=== PATIENT | female | born 1985 | race Hispanic/Latino ===

== ENCOUNTER 2018-03-19 09:30 | Inpatient (IN) | payer MEDICAID ==
[~2018-03-19] VITALS: Ht 160 cm; Wt 97.5 kg
[2018-03-19 10:35] LABS: HEMATOCRIT 32.9 % (36-48); MEAN CORPUSCULAR HEMOGLOBIN 28.1 pg (27.0-33.0); MEAN CORPUSCULAR HGB CONC 33.7 g/dL (32.0-36.0); MEAN CORPUSCULAR VOLUME 83.4 fL (79-99); NUCLEATED RED BLOOD CELLS 0.1 % (0.0-0.19); PLATELET COUNT (AUTO) 211 K/uL (130-400); RED BLOOD CELL COUNT(AUTO) 3.95 MIL/uL (4.00-5.50); RED CELL DISTRIBUTION WIDTH 14.5 % (11.0-15.5); WHITE BLOOD COUNT (AUTO) 8.2 K/uL (4.8-10.8)
[2018-03-20 07:27] LABS: HEPATITIS Bs ANTIGEN SCREEN P Negative (Negative)
[2018-03-20] MEDS ORDERED: LACTATED RINGERS 1000ML 1,000 ML IV SCH (07:45)
[2018-03-20] MEDS ORDERED: CEFAZOLIN SODIUM 1 GM VIAL IVP PRN (07:45)
[2018-03-20] MEDS ORDERED: DURAMORPH PF1 MG/ML 10ML AMP IV ONE (08:54)
[2018-03-20] MEDS ORDERED: CEFAZOLIN SODIUM 1 GM VIAL IVP ONE (09:05)
[2018-03-20] MEDS ORDERED: GLYCOPYRROLATE 1 MG/5 ML SYRINGE ONE (09:11)
[2018-03-20] MEDS ORDERED: OXYTOCIN 10 UNIT/1ML 10ML VIAL ONE (09:31)
[2018-03-20] MEDS ORDERED: MIDAZOLAM HCL 1 MG/ML 2ML VIAL ONE (09:31)
[2018-03-20] MEDS ORDERED: OXYTOCIN-LR 20 UNITS/1000 ML 1,000 ML IV PRN (10:50)
[2018-03-20] MEDS ORDERED: SODIUM CHLORIDE 0.9% 10 ML VIAL IVP PRN (11:00)
[2018-03-20] MEDS ORDERED: MEPERIDINE-PF 75 MG/ML SYG IM PRN (11:00)
[2018-03-20] MEDS ORDERED: PROMETHAZINE HCL 25 MG/ML 1ML AMPULE IM PRN ×2 (11:00→13:15)
[2018-03-20] MEDS ORDERED: LACTATED RINGERS 1000ML 1,000 ML IV ONE (11:46)
[2018-03-20] MEDS ORDERED: OXYTOCIN 10 USP UNITS/ML ONE (11:46)
[2018-03-20 12:02] VITALS: BP 94/63
[2018-03-20] MEDS ORDERED: DiphenhydrAMINE HCL 50 MG/ML VIAL IVP PRN (13:15)
[2018-03-20] MEDS ORDERED: ONDANSETRON HCL 4 MG/2 ML VIAL IVP PRN ×2 (13:15)
[2018-03-20] MEDS ORDERED: ONDANSETRON HCL 4 MG/2 ML 8 MG in SODIUM CHLORIDE 0.9% 50 ML IVP NR (13:15)
[2018-03-20] MEDS ORDERED: MORPHINE SULFATE 2 MG/ML 1ML SYG IVP PRN (13:15)
[2018-03-20] MEDS ORDERED: NALOXONE HCL 0.4 MG/1 ML ML IVP PRN ×2 (13:15)
[2018-03-20] MEDS ORDERED: HYDROCODONE/ACETAMINOPHEN 5/325 MG TAB PO PRN (13:15)
[2018-03-20] MEDS ORDERED: METOCLOPRAMIDE 10 MG/2 ML VIAL IVP PRN (13:15)
[2018-03-20] MEDS ORDERED: EPHEDRINE SULFATE 50 MG/ML AMPULE IVP PRN (13:15)
[2018-03-20 16:15] VITALS: BP 103/55
[2018-03-20] MEDS: DEXTROSE 5 %-0.45 % NACL 1,000 ML IV PRN (17:53)
[2018-03-20] MEDS: HYDROCODONE/ACETAMINOPHEN 5/325 MG TAB PO PRN ×2 (17:56→23:51)
[2018-03-20 20:41] VITALS: BP 107/71
[2018-03-21] MEDS: DEXTROSE 5 %-0.45 % NACL 1,000 ML IV PRN ×2 (00:13→07:04)
[2018-03-21 00:27] VITALS: BP 110/68
[2018-03-21 04:58] VITALS: BP 97/52
[2018-03-21] MEDS: HYDROCODONE/ACETAMINOPHEN 5/325 MG TAB PO PRN ×2 (05:31→21:31)
[2018-03-21 06:18] LABS: HEMATOCRIT 30.2 % (36-48); MEAN CORPUSCULAR HEMOGLOBIN 27.6 pg (27.0-33.0); MEAN CORPUSCULAR HGB CONC 33.1 g/dL (32.0-36.0); MEAN CORPUSCULAR VOLUME 83.6 fL (79-99); PLATELET COUNT (AUTO) 159 K/uL (130-400); RED BLOOD CELL COUNT(AUTO) 3.61 MIL/uL (4.00-5.50); RED CELL DISTRIBUTION WIDTH 14.9 % (11.0-15.5); WHITE BLOOD COUNT (AUTO) 11.5 K/uL (4.8-10.8)
[2018-03-21 07:40] VITALS: BP 107/63
[2018-03-21] MEDS ORDERED: ACETAMINOPHEN-CODEINE 300/30MG TAB PO PRN (08:00)
[2018-03-21] MEDS ORDERED: BISACODYL 10 MG SUPP.RECT RC PRN (08:00)
[2018-03-21] MEDS ORDERED: DIPHENHYDRAMINE HCL 25 MG CAPSULE PO PRN (08:30)
[2018-03-21] MEDS: DOCUSATE SODIUM 100 MG CAP PO SCH ×2 (08:32→21:21)
[2018-03-21] MEDS: IBUPROFEN 800 MG TAB PO SCH ×2 (08:32→17:30)
[2018-03-21] MEDS: SIMETHICONE 80 MG TAB.CHEW PO PRN ×3 (09:56→18:55)
[2018-03-21] MEDS ORDERED: IBUPROFEN 800 MG TAB PO SCH (11:00)
[2018-03-21 11:38] VITALS: BP 106/61
[2018-03-21] MEDS ORDERED: DIPH,PERTUSS(ACELL),TET VAC/PF 0.5 ML VIAL IM SCH (13:45)
[2018-03-21] MEDS ORDERED: MEASLES/MUMPS/RUBELLA VACCINE, LIVE 0.5 ML/VIAL SQ SCH (13:45)
[2018-03-21 15:56] VITALS: BP 90/52
[2018-03-21 20:50] VITALS: BP 94/53
[2018-03-22] MEDS: IBUPROFEN 800 MG TAB PO SCH ×2 (00:12→08:34)
[2018-03-22 01:35] VITALS: BP 95/52
[2018-03-22 05:09] VITALS: BP 94/57
[2018-03-22 07:47] VITALS: BP 101/61
[2018-03-22] MEDS: SIMETHICONE 80 MG TAB.CHEW PO PRN (08:33)
[2018-03-22] MEDS: DOCUSATE SODIUM 100 MG CAP PO SCH (08:33)
== END 2018-03-22 11:05 | disposition home or self-care (01) | DRG 540 ==
LOC: EDSTATUS 09:30 → WSH 03-20 07:30
PROVIDERS: ADMIT Specialist; ATTEND Specialist
PROC: 3E0234Z Introduction of Serum, Toxoid and Vaccine into Muscle, Percutaneous Approach (ICD-10-PCS; 2018-03-20)
PROC: 3E0234Z Introduction of Serum, Toxoid and Vaccine into Muscle, Percutaneous Approach (ICD-10-PCS; 2018-03-20)
PROC: 3E0134Z Introduction of Serum, Toxoid and Vaccine into Subcutaneous Tissue, Percutaneous Approach (ICD-10-PCS; 2018-03-20)
PROC: 10D00Z1 Extraction of Products of Conception, Low, Open Approach (ICD-10-PCS; principal; 2018-03-20 09:00)
DX: O34.211 Maternal care for low transverse scar from previous cesarean delivery (principal); O75.3 Other infection during labor; N85.8 Other specified noninflammatory disorders of uterus; Z3A.39 39 weeks gestation of pregnancy; Z37.0 Single live birth; Z23 Encounter for immunization; Z91.040 Latex allergy status
CPT/HCPCS: 36415; 59510; 85027; 86592; 86850; 86900; 86901; 87340; 90707; 90715; A4344; A4606; J0690; J2250; J2274; J2590; J3490; J7120; Q2038

== ENCOUNTER 2020-12-11 12:02 | Emergency (ER) | payer MEDICAID, OTHER ==
[~2020-12-11] VITALS: Ht 160 cm; Wt 70.3 kg
[2020-12-11 12:36] LABS: BASOPHILS % (AUTO) 0.8 % (0.0-5.0); EOSINOPHILS % (AUTO) 0.2 % (0.0-8.0); HEMATOCRIT 36.6 % (36-48); LYMPHOCYTES % (AUTO) 14.8 % (21.0-51.0); MEAN CORPUSCULAR HEMOGLOBIN 30.5 pg (27.0-33.0); MEAN CORPUSCULAR HGB CONC 33.6 g/dL (32.0-36.0); MEAN CORPUSCULAR VOLUME 90.8 fL (79-99); MONOCYTES % (AUTO) 8.9 % (3.0-13.0); NEUTROPHILS % (AUTO) 74.7 % (40.0-77.0); PLATELET COUNT (AUTO) 180 K/uL (130-400); RED BLOOD CELL COUNT(AUTO) 4.03 MIL/uL (4.00-5.50); WHITE BLOOD COUNT (AUTO) 4.9 K/uL (4.8-10.8)
[2020-12-11 12:50] LABS: CREATININE 0.7 mg/dL (0.5-1.5); POTASSIUM 3.9 mmol/L (3.5-5.1)
[2020-12-11 13:01] LABS: ALBUMIN 3.8 g/dL (3.5-5.0); BILIRUBIN,TOTAL 0.6 mg/dL (0.2-1.0); TOTAL PROTEIN, SERUM 7.6 g/dL (6.0-8.3)
[2020-12-11 14:00] LABS: APPEARANCE,URINE Clear (CLEAR); BILIRUBIN,URINE Negative (NEGATIVE); COLOR,URINE Yellow (YELLOW); GLUCOSE, URINE (UA) Negative (NEGATIVE); KETONES,URINE Negative (NEGATIVE); LEUKOCYTE ESTERASE ,URINE Negative (NEGATIVE); NITRATE,URINE Negative (NEGATIVE); OCCULT BLOOD,URINE Negative (NEGATIVE); PROTEIN,URINE Negative (NEGATIVE)
[2020-12-11] MEDS ORDERED: ACETAMINOPHEN 325 MG TAB PO SCH (14:00)
[2020-12-11] MEDS ORDERED: ACETAMINOPHEN 500 MG TABLET ONE (14:00)
[2020-12-11 14:25] VITALS: BP 107/66
[2020-12-11] MEDS ORDERED: ONDA4TAB4 PO (14:56)
[2020-12-11] MEDS ORDERED: ACET-2247 PO (14:56)
== END 2020-12-11 15:22 | disposition home or self-care (01) ==
LOC: EDH 12:02
DX: O26.891 Other specified pregnancy related conditions, first trimester (principal); R07.89 Other chest pain; R06.00 Dyspnea, unspecified; Z3A.01 Less than 8 weeks gestation of pregnancy; Z91.040 Latex allergy status; Z98.890 Other specified postprocedural states
CPT/HCPCS: 36415; 76801; 80053; 81003; 84484; 84702; 85025; 86140; 93005

== ENCOUNTER 2021-05-28 12:08 | Observation (INO) | payer MEDICAID ==
[~2021-05-28 12:08] MED LIST: PREN1TAB63 PO
[2021-05-28 12:43] VITALS: BP 90/54
== END 2021-05-28 13:40 | disposition home or self-care (01) ==
LOC: LDH 12:08
PROVIDERS: ADMIT Specialist; ATTEND Specialist
DX: O60.03 Preterm labor without delivery, third trimester (principal); O36.8330 Maternal care for abnormalities of the fetal heart rate or rhythm, third trimester, not applicable or unspecified; Z3A.30 30 weeks gestation of pregnancy; Z98.891 History of uterine scar from previous surgery
CPT/HCPCS: 59025; 76819; G0378

== ENCOUNTER 2021-05-31 11:19 | Observation (INO) | payer MEDICAID ==
[~2021-05-31] VITALS: Ht 160 cm; Wt 90.7 kg
[2021-05-31] MEDS: LACTATED RINGERS 1000ML 1,000 ML IV SCH ×2 (11:50→15:40)
== END 2021-06-01 08:20 | disposition home or self-care (01) ==
LOC: LDH 11:19
PROVIDERS: ADMIT Specialist; ATTEND Specialist
DX: O41.03X0 Oligohydramnios, third trimester, not applicable or unspecified (principal); O62.9 Abnormality of forces of labor, unspecified; O26.893 Other specified pregnancy related conditions, third trimester; R60.0 Localized edema; Z3A.32 32 weeks gestation of pregnancy; Z88.0 Allergy status to penicillin
CPT/HCPCS: 76815; 96360; 96361 ×3; G0378 ×20; G0379

== ENCOUNTER 2021-06-15 16:35 | Observation (INO) | payer MEDICAID | END 2021-06-15 17:41 | disposition home or self-care (01) | LOC: LDH 16:35 | PROVIDERS: ADMIT Specialist; ATTEND Specialist | DX: O42.913 Preterm premature rupture of membranes, unspecified as to length of time between rupture and onset of labor, third trimester (principal); Z3A.33 33 weeks gestation of pregnancy | CPT/HCPCS: 59025; G0378 ×2; G0379 ==

== ENCOUNTER 2021-07-06 13:58 | Inpatient (IN) | payer MEDICAID ==
[2021-07-05] MEDS: LACTATED RINGERS 1000ML 1,000 ML IV SCH (22:00)
[~2021-07-06] VITALS: Ht 161.3 cm; Wt 92.1 kg
[2021-07-06 20:00] VITALS: BP 95/52
[2021-07-07] MEDS ORDERED: DIPH-764 PO (05:32)
[2021-07-07] MEDS ORDERED: METOCLOPRAMIDE 10 MG/2 ML VIAL IVP PRN (12:30)
[2021-07-07] MEDS ORDERED: CEFAZOLIN SODIUM 1 GM VIAL IVP PRN (12:30)
[2021-07-07] MEDS ORDERED: FAMOTIDINE 20MG VIAL IV PRN (12:30)
[2021-07-07] MEDS ORDERED: CITRIC ACID/SODIUM CITRATE 30 ML UDCUP PO PRN (12:30)
[2021-07-07 13:42] LABS: HEMATOCRIT 28.8 % (36-48); MEAN CORPUSCULAR HEMOGLOBIN 26.2 pg (27.0-33.0); MEAN CORPUSCULAR HGB CONC 31.9 g/dL (32.0-36.0); MEAN CORPUSCULAR VOLUME 82.1 fL (79-99); RED BLOOD CELL COUNT(AUTO) 3.51 MIL/uL (4.00-5.50); RED CELL DISTRIBUTION WIDTH 14.8 % (11.0-15.5); WHITE BLOOD COUNT (AUTO) 7.3 K/uL (4.8-10.8)
[2021-07-07] MEDS ORDERED: ONDANSETRON 4MG INJ ONE ×2 (13:54→14:39)
[2021-07-07] MEDS ORDERED: EPHEDRINE SULFATE 50 MG/ML AMPULE ONE (13:55)
[2021-07-07] MEDS ORDERED: FENTANYL CITRATE PF 50 MCG/1 ML 2ML VIAL ONE (13:55)
[2021-07-07] MEDS ORDERED: MORPHINE PF 100MG/10ML AMP IV ONE (13:55)
[2021-07-07] MEDS ORDERED: OXYTOCIN 10 USP UNITS/ML ONE (13:55)
[2021-07-07] MEDS ORDERED: METHYLERGONOVINE MALEATE 0.2 MG/1 ML ML ONE (14:03)
[2021-07-07] MEDS ORDERED: MISOPROSTOL 200 MCG TABLET ONE (14:03)
[2021-07-07] MEDS ORDERED: CEFAZOLIN SODIUM 2 GM VIAL IV ONE (14:36)
[2021-07-07] MEDS ORDERED: METHYLERGONOVINE MALEATE 0.2 MG/1 ML ML IM ONE (15:04)
[2021-07-07] MEDS ORDERED: OXYTOCIN-LR 20 UNITS/1000 ML 1,000 ML IV ONE (15:37)
[2021-07-07 15:49] LABS: HEMATOCRIT 28.6 % (36-48)
[2021-07-07] MEDS ORDERED: MIDAZOLAM HCL 1 MG/ML 2ML VIAL ONE (15:59)
[2021-07-07] MEDS ORDERED: OXYTOCIN-LR 20 UNITS/1000 ML 1,000 ML IV PRN (17:00)
[2021-07-07] MEDS ORDERED: 0.9%NACL 10ML VIAL IVP PRN (17:00)
[2021-07-07] MEDS ORDERED: MEPERIDINE-PF 75 MG/ML SYG IM PRN (17:00)
[2021-07-07] MEDS ORDERED: PROMETHAZINE HCL 25 MG/ML 1ML AMPULE IM PRN (17:00)
[2021-07-07] MEDS ORDERED: DEXTROSE 5 %-0.45 % NACL 1,000 ML IV PRN (17:00)
[2021-07-07] MEDS ORDERED: ONDANSETRON 4MG INJ IVP PRN (17:30)
[2021-07-07] MEDS ORDERED: EPHEDRINE SULFATE 50 MG/ML AMPULE IVP PRN (17:30)
[2021-07-07] MEDS ORDERED: DiphenhydrAMINE HCL 50 MG/ML VIAL IVP PRN (17:30)
[2021-07-07] MEDS ORDERED: NALOXONE HCL 0.4 MG/1 ML ML IVP PRN ×3 (17:30)
[2021-07-07 20:25] VITALS: BP 109/66
[2021-07-07] MEDS: LACTATED RINGERS 1000ML 1,000 ML IV SCH (22:30)
[2021-07-07 22:55] VITALS: BP 101/66
[2021-07-08 03:50] VITALS: BP 106/57
[2021-07-08] MEDS: LACTATED RINGERS 1000ML 1,000 ML IV SCH (06:30)
[2021-07-08 07:14] LABS: HEPATITIS Bs ANTIGEN SCREEN P Negative (Negative)
[2021-07-08 07:16] LABS: MEAN CORPUSCULAR HEMOGLOBIN 25.9 pg (27.0-33.0); MEAN CORPUSCULAR HGB CONC 32.3 g/dL (32.0-36.0); MEAN CORPUSCULAR VOLUME 80.2 fL (79-99); RED BLOOD CELL COUNT(AUTO) 3.24 MIL/uL (4.00-5.50); RED CELL DISTRIBUTION WIDTH 14.5 % (11.0-15.5); WHITE BLOOD COUNT (AUTO) 10.1 K/uL (4.8-10.8)
[2021-07-08 07:45] VITALS: BP 89/52
[2021-07-08] MEDS ORDERED: DIPH,PERTUSS(ACELL),TET VAC/PF 0.5 ML VIAL IM SCH (08:30)
[2021-07-08] MEDS ORDERED: ACETAMINOPHEN 500 MG TABLET PO PRN (08:30)
[2021-07-08] MEDS ORDERED: HYDROCODONE/ACETAMINOPHEN 5/325 MG TAB PO PRN (08:30)
[2021-07-08] MEDS ORDERED: BISACODYL 10 MG SUPP.RECT RC PRN (08:30)
[2021-07-08] MEDS: ACETAMINOPHEN WITH CODEINE 1 TAB TAB PO PRN ×3 (09:18→17:39)
[2021-07-08] MEDS: SIMETHICONE 80 MG TAB.CHEW PO PRN ×2 (09:18→21:04)
[2021-07-08] MEDS: DOCUSATE SODIUM 100 MG CAP PO SCH ×2 (09:18→21:04)
[2021-07-08 11:31] VITALS: BP 97/57
[2021-07-08] MEDS: IBUPROFEN 600 MG TABLET PO PRN ×2 (14:26→21:08)
[2021-07-08 16:00] VITALS: BP 102/61
[2021-07-08 19:19] VITALS: BP 110/67
[2021-07-08 23:00] VITALS: BP 103/56
[2021-07-09 03:22] VITALS: BP 95/57
[2021-07-09] MEDS: ACETAMINOPHEN WITH CODEINE 1 TAB TAB PO PRN ×3 (03:49→14:10)
[2021-07-09] MEDS: IBUPROFEN 600 MG TABLET PO PRN (06:38)
[2021-07-09 07:12] VITALS: BP 91/61
[2021-07-09] MEDS: DOCUSATE SODIUM 100 MG CAP PO SCH (09:03)
[2021-07-09] MEDS: SIMETHICONE 80 MG TAB.CHEW PO PRN ×2 (09:03→12:05)
[2021-07-09] MEDS ORDERED: FLU VACC QS2021-22(6MOS UP)/PF 60 MCG/0.5 ML ML IM SCH (10:00)
[2021-07-09] MEDS ORDERED: FLU VACC QS2021-22(6MOS UP)/PF 60 MCG/0.5 ML ML IM ONE (10:00)
[2021-07-09 11:03] VITALS: BP 102/63
== END 2021-07-09 15:30 | disposition home or self-care (01) | DRG 540 ==
LOC: INTOOBSV 13:58 → LDH 13:58 → OBSVTOIN 13:58 → WSH 07-07 20:28
PROVIDERS: ADMIT Specialist; ATTEND Specialist
PROC: 3E0234Z Introduction of Serum, Toxoid and Vaccine into Muscle, Percutaneous Approach (ICD-10-PCS; 2021-07-07)
PROC: 3E02340 Introduction of Influenza Vaccine into Muscle, Percutaneous Approach (ICD-10-PCS; 2021-07-07)
PROC: 10D00Z0 Extraction of Products of Conception, High, Open Approach (ICD-10-PCS; principal; 2021-07-07 14:30)
DX: O34.212 Maternal care for vertical scar from previous cesarean delivery (principal); O41.03X0 Oligohydramnios, third trimester, not applicable or unspecified; N73.6 Female pelvic peritoneal adhesions (postinfective); Z37.0 Single live birth; O99.892 Other specified diseases and conditions complicating childbirth; Z3A.36 36 weeks gestation of pregnancy; Z23 Encounter for immunization; Z91.040 Latex allergy status
CPT/HCPCS: 36415; 59025; 59510; 76819; 85014; 85018; 85027; 86592; 86850; 86900; 86901; 87340; 90715; 96360; 96361; A4344; A4606; G0378; J0690; J2175; J2210; J2250; J2274; J2405; J2550; J2590; J3010; J3490; J7120; Q2035